=== PATIENT | male | born 1980 | race Caucasian/White ===

== ENCOUNTER 2017-08-19 19:58 | Emergency (ER) | payer OTHER ==
[~2017-08-19] VITALS: Ht 170.2 cm; Wt 72.6 kg
[~2017-08-19 19:58] MED LIST: CELEXA 10 MG TA10 M1 PO; NORCO 5-325 TA1 EACH PO
[2017-08-19 20:05] VITALS: BP 137/94
[2017-08-19] MEDS ORDERED: CELEXA40 MG PO (20:10)
== END 2017-08-19 21:53 | disposition home or self-care (01) ==
LOC: ER 19:58
DX: S01.511A Laceration without foreign body of lip, initial encounter (principal); W22.8XXA Striking against or struck by other objects, initial encounter; Y93.89 Activity, other specified; Y92.89 Other specified places as the place of occurrence of the external cause; Y99.8 Other external cause status